=== PATIENT | female | born 1995 | race Native Hawaiian/Other Pacific Islander ===

== ENCOUNTER 2022-12-10 13:12 | Emergency (ER) | payer OTHER ==
[~2022-12-10] VITALS: Ht 162.6 cm; Wt 63.5 kg
[2022-12-10 13:12] VITALS: TEMP 97.9
[2022-12-10 13:37] LABS: PLATELET COUNT 290 K/uL (152-353)
[2022-12-10 13:42] LABS: POTASSIUM 3.4 mmol/L (3.6-5.2)
[2022-12-10 16:29] VITALS: BP 110/65
== END 2022-12-10 16:29 | disposition home or self-care (01) ==
LOC: ED 13:12
PROVIDERS: Family Medicine
DX: R55 Syncope and collapse (principal); I95.1 Orthostatic hypotension; O99.893 Other specified diseases and conditions complicating puerperium; W01.198A Fall on same level from slipping, tripping and stumbling with subsequent striking against other object, initial encounter; Y92.89 Other specified places as the place of occurrence of the external cause
CPT/HCPCS: 80053; 80307; 81002; 85027; 93005; 96360; 96361; 99284

== ENCOUNTER 2023-01-08 00:32 | Emergency (ER) | payer OTHER ==
[~2023-01-08] VITALS: Ht 162.6 cm; Wt 63.5 kg
[2023-01-08 02:15] LABS: PLATELET COUNT 349 K/uL (152-353)
[2023-01-08 02:22] LABS: POTASSIUM 3.3 mmol/L (3.6-5.2); SODIUM 138 mmol/L (136-145)
[2023-01-08 14:00] VITALS: BP 107/74; TEMP 97.6
== END 2023-01-08 14:05 | disposition other institution (70) ==
LOC: ED 00:32
PROVIDERS: Emergency Medicine
DX: F32.9 Major depressive disorder, single episode, unspecified (principal); R45.851 Suicidal ideations; Z11.52 Encounter for screening for COVID-19
CPT/HCPCS: 36415; 80053; 80143; 80179; 80307; 80320; 81002; 81025; 85027; 87635; 99285; U0003